=== PATIENT | male | born 1990 | race Two or more races ===

== ENCOUNTER 2017-10-22 16:22 | Emergency (ER) | payer OTHER ==
[~2017-10-22] VITALS: Ht 172.7 cm; Wt 70.3 kg
[~2017-10-22 16:22] MED LIST: AUGMENTIN 875-1 EAC1 ORAL; NKM
[2017-10-22 16:43] VITALS: BP 112/62
--- NOTE | 2017-10-22 16:51 | Emergency Room Report ---
History of Present Illness General Chief Complaint: Laceration Source: Patient Present Illness HPI 27 yo male patient presents ER complaining of laceration on his left wrist. States that he was at work when he was cutting some cheese and accident he cut his wrist. Reports he is right-hand dominant. Denies loss sensation was range of motion. Denies surrounding erythema or edema. Reports bleeding from site of injury, states bleeding is controlled now. Reports her she distended vaccination 2 years ago. Denies fever, chest pain, shortness of breath. Allergies: Coded Allergies: No Known Allergies (Unverified , 12/10/15) Patient History Past Medical History: see triage record Reviewed Nursing Documentation: PMH: Agreed; PSxH: Agreed Nursing Documentation-PMH Past Medical History: No Stated History Review of Systems All Other Systems: negative except mentioned in HPI Physical Exam Vital Signs Date Time Temp Pulse Resp B/P (MAP) Pulse Ox O2 Delivery O2 Flow Rate FiO2 10/22/17 16:32 98.6 59 16 112/62 97 Room Air 98.6 Sp02 EP Interpretation: reviewed, normal General Appearance: well appearing, no apparent distress, alert, GCS 15, non- toxic Head: normocephalic, atraumatic Eyes: bilateral eye normal inspection, bilateral eye PERRL ENT: hearing grossly normal, normal pharynx, no angioedema, normal voice, uvula midline, moist mucus membranes Neck: full range of motion Respiratory: lungs clear, normal breath sounds, no rhonchi, no respiratory distress, no accessory muscle use, no wheezing, speaking full sentences Cardiovascular #2: 2+ radial (R), 2+ radial (L) Musculoskeletal: back normal, digits/nails normal, gait/station normal, normal range of motion, non-tender Neurologic: alert, oriented x3, responsive, motor strength/tone normal, sensory intact Skin: laceration - 1 cm superficial right angle laceration over radial aspect of left wrist, dried blood present, no active bleeding, no pulsating blood, sensation intact to light touch Procedures Laceration/Wound Repair Laceration/Wound Repair : Consent: Verbal Wound Location: upper extremity - left wrist Wound's Depth, Shape: superficial - right angle Wound Explored: contaminated Irrigated w/ Saline (ccs): 10 Betadine Prep?: No Anesthesia: other - LET Volume Anesthetic (ccs): 1 Wound Debrided: extensive Wound Repaired With: Dermabond Sterile Dressing Applied?: No Sling Applied?: No Patient Tolerated: Well Complications: None Medical Decision Making PA Attestation Dr. Telles is my supervising Physician whom patient management has been discussed with. Diagnostic Impression: Primary Impression: Laceration ER Course Pt presents to ED c/o laceration on left wrist. DDX considered but are not limited to laceration, abrasion, contusion, cellulitis. VITAL SIGNS are WNL, patient is afebrile ED INTERVENTIONS: Small 1 cm right ankle laceration on left wrist. Does not require sutures, will repair with Dermabond. Full ROM of wrist, no loss of sensation, low suspicion for fracture or ligament injury, does not require imaging at this time. up to date on tetanus, does not require TDAP at this time. no surrounding erythema or edema, no signs of infection, does not require antibiotic treatment. Wound was cleaned and irrigated using copious normal saline. Local block using LET topical. Wound repaired using Dermabond. Advised patient on Dermabond wound repair. Patient reports understanding and agreement to treatment plan. Keep wound clean and dry. Complete Workmen's Compensation paperwork. Avoid excessive use of left wrist to prevent wound opening. Apply Neosporin to help prevent appearance of scar. DISCHARGE: At this time pt is stable for d/c to home. Patient resting comfortably, in no acute distress, nontoxic appearing, talking without difficulty. Will provide with patient care instructions and any necessary prescriptions. Patient to take medication as instructed. Care plan and follow-up instructions provided. Work note provided to patient. Patient questions asked and answered. Patient reports understanding and agreement to treatment plan. Patient instructed to follow-up with primary care provider in 3-5 days for wound check. ER precautions given. Patient instructed to return to ER immediately for any new or worsening of symptoms. - Please note that this Emergency Department Report was dictated using [employer] technology software, occasionally this can lead to erroneous entry secondary to interpretation by the dictation equipment. Last Vital Signs Date Time Temp Pulse Resp B/P (MAP) Pulse Ox O2 Delivery O2 Flow Rate FiO2 10/22/17 16:43 98.6 79 16 112/62 97 Room Air 98.6 Disposition: HOME, SELF-CARE Condition: Stable Patient Instructions: Nonsutured Laceration Care Additional Instructions: Patient instructed to follow-up with primary care provider in 3-5 days for wound check. Take medications as directed. Keep wound clean and dry. Patient questions asked and answered. ER precautions given, patient instructed to return to ER immediately for any new or worsening of symptoms. Luis Odom Oct 22, 2017 16:50
[2017-10-22] MEDS ORDERED: LET 3ml Soln TOPIC ONE (17:00)
[2017-10-22] MEDS ORDERED: BACITRACIN-P28.35 GM TP (17:16)
[2017-10-22 17:34] VITALS: BP 121/72
== END 2017-10-22 17:41 | disposition home or self-care (01) ==
LOC: EMR 17:41
DX: S61.512A Laceration without foreign body of left wrist, initial encounter (principal); W26.0XXA Contact with knife, initial encounter; Y92.511 Restaurant or cafe as the place of occurrence of the external cause; Y99.0 Civilian activity done for income or pay
CPT/HCPCS: 99282